=== PATIENT | female | born 1975 | race Caucasian/White ===

== ENCOUNTER 2021-12-31 10:51 | Emergency (ER) | payer OTHER ==
[2021-12-31 10:57] VITALS: PULSE 77; BMI 32.5
[2021-12-31] MEDS ORDERED: ACETAMINOPHEN 1000 MG/100 ML BAG IVPB ONE (11:24)
[2021-12-31] MEDS ORDERED: SODIUM CHLORIDE 0.9% 500 ML INFUS.BAG IV ONE (11:25)
[2021-12-31] MEDS ORDERED: ONDANSETRON 4 MG/2 ML VIAL IVPUSH ONE ×2 (11:25→15:08)
[2021-12-31] MEDS ORDERED: ONDANSETRON 4 MG/2 ML VIAL ONE ×2 (11:36→15:43)
[2021-12-31] MEDS ORDERED: ACETAMINOPHEN INJECTION 100 ML IVPB ONE (11:36)
[2021-12-31 12:51] LABS: BASO % 0.3 % (0-2.0); EOS % 0.1 % (0-4.5); HEMATOCRIT 37.4 % (32.4-45.2); HEMOGLOBIN 12.5 GM/dL (10.7-15.3); LYMPH % 9.6 % (8-40); MCH 26.7 pg (25.7-33.7); MCHC 33.5 g/dl (32.0-36.0); MEAN CELL VOLUME 79.8 fl (80-96); MEAN PLT VOLUME 7.6 fl (7.5-11.1); MONO % 4.9 % (3.8-10.2); NEUT % 85.1 % (42.8-82.8); PLATELET COUNT 266 10^3/uL (134-434); RBC 4.69 M/mm3 (3.60-5.2); RDW 14.1 % (11.6-15.6)
[2021-12-31 13:16] LABS: CALCIUM 8.6 mg/dL (8.5-10.1)
[2021-12-31 13:18] LABS: ALBUMIN 3.8 g/dl (3.4-5.0); BLOOD UREA NITROGEN 10.3 mg/dL (7-18)
[2021-12-31 13:20] LABS: CREATININE 0.7 mg/dL (0.55-1.3)
[2021-12-31 13:21] LABS: BILIRUBIN,TOTAL 0.2 mg/dL (0.2-1); TOT PROT 7.1 g/dl (6.4-8.2)
[2021-12-31 14:17] LABS: URINE APPEARANCE CLEAR; URINE BILIRUBIN NEGATIVE (NEGATIVE); URINE COLOR YELLOW; URINE GLUCOSE (UA) NEGATIVE (NEGATIVE); URINE KETONE 2+ (NEGATIVE); URINE LEUK ESTERASE NEGATIVE (NEGATIVE); URINE NITRITE NEGATIVE (NEGATIVE); URINE PROTEIN NEGATIVE (NEGATIVE); URINE UROBILINOGEN 0.2 mg/dL (0.2-1.0)
[2021-12-31 15:40] VITALS: BP 115/73; TEMP 98.1
== END 2021-12-31 17:00 | disposition home or self-care (01) ==
LOC: JER 10:51
PROC: 3E0333Z Introduction of Anti-inflammatory into Peripheral Vein, Percutaneous Approach (ICD-10-PCS; principal; 2021-12-31)
PROC: 3E033GC Introduction of Other Therapeutic Substance into Peripheral Vein, Percutaneous Approach (ICD-10-PCS; 2021-12-31)
PROC: 3E033GC Introduction of Other Therapeutic Substance into Peripheral Vein, Percutaneous Approach (ICD-10-PCS; 2021-12-31)
DX: R10.31 Right lower quadrant pain (principal)
CPT/HCPCS: 36415; 74177-TC; 80053; 81003; 83690; 84703; 85025; 87077; 87086; 99285-25; Q9967